=== PATIENT | male | born 1960 | race Caucasian/White ===

== ENCOUNTER 2017-02-20 09:04 | Inpatient (IN) | payer SELFPAY ==
[~2017-02-20] VITALS: Ht 175.3 cm; Wt 90.3 kg
[2017-02-20] MEDS ORDERED: PANTOPRAZOLE 80 MG in SODIUM CHLORIDE 0.9% 50 ML IV ONE (09:30)
[2017-02-20] MEDS ORDERED: PANTOPRAZOLE 80 MG in SODIUM CHLORIDE 0.9% 100 ML IV SCH (09:30)
[2017-02-20] MEDS ORDERED: SODIUM CHLORIDE FLUSH 10ML SYR IVF ONE (09:30)
[2017-02-20] MEDS ORDERED: ONDANSETRON 2MG/ML, 2ML IVPush ONE (09:30)
[2017-02-20] MEDS ORDERED: SODIUM CHLORIDE 0.9% 1,000ML IVBOLUS ONE (09:30)
[2017-02-20 10:31] LABS: ASPARTATE AMINO TRANSFERASE 16 U/L (15-37); BLOOD UREA NITROGEN 55 mg/dL (7-18)
[2017-02-20 10:34] LABS: DIFF TOTAL CELLS COUNTED 100 CELL DIFF
[2017-02-20 10:36] LABS: LARGE PLATELETS 1+; VERIFY COUNTS? YES
[2017-02-20] MEDS ORDERED: MORPHINE SULFATE 4 MG/ML, 1ML ONE ×2 (10:36→12:18)
[2017-02-20] MEDS ORDERED: ONDANSETRON 2MG/ML, 2ML ONE (10:36)
[2017-02-20] MEDS ORDERED: PROPOFOL 10 MG/ML, 20ML ONE (10:45)
[2017-02-20] MEDS ORDERED: SUCCINYLCHOLINE 20 MG/ML, 10ML ONE (10:45)
[2017-02-20] MEDS ORDERED: CALCIUM CHLORIDE 10%, 10ML SYR ONE (10:45)
[2017-02-20] MEDS ORDERED: DEXAMETHASONE 4 MG/ML, 1ML ONE (10:45)
[2017-02-20] MEDS ORDERED: ROCURONIUM 10 MG/ML ONE (10:45)
[2017-02-20] MEDS ORDERED: PHENYLEPHRINE 10 MG/ML ONE (10:45)
[2017-02-20] MEDS: MORPHINE SULFATE 4 MG/ML, 1ML IVPush PRN ×2 (11:02→12:20)
[2017-02-20] MEDS ORDERED: SODIUM CHLORIDE 0.9% 1,000 ML IV SCH (11:10)
[2017-02-20] MEDS ORDERED: SIMV5TAB5 PO (11:13)
[2017-02-20] MEDS ORDERED: LISI1TAB3 PO (11:13)
[2017-02-20] MEDS ORDERED: DILT360C22 PO (11:13)
[2017-02-20] MEDS ORDERED: ALLO300T PO (11:13)
[2017-02-20] MEDS ORDERED: CEFTRIAXONE PMX 1GM/50ML 50 ML IV ONE (11:30)
[2017-02-20] MEDS ORDERED: CEFTRIAXONE PMX 1GM/50ML 50 ML ONE (11:37)
[2017-02-20] MEDS ORDERED: NS + 20MEQ KCL 1,000 ML IV SCH ×2 (12:36→19:30)
[2017-02-20] MEDS ORDERED: ONDANSETRON 2MG/ML, 2ML IVP PRN (13:00)
[2017-02-20] MEDS ORDERED: ACETAMINOPHEN 325 MG TABLET PO PRN (13:00)
[2017-02-20] MEDS ORDERED: TEMAZEPAM 15 MG CAPSULE PO PRN (13:00)
[2017-02-20 13:17] LABS: BLOOD UREA NITROGEN 53 mg/dL (7-18)
[2017-02-20 13:24] LABS: IS PT STATUS REG ER OR PRE ER? YES
[2017-02-20 13:51] VITALS: BP 107/56
[2017-02-20 14:48] LABS: BLOOD UREA NITROGEN 53 mg/dL (7-18)
[2017-02-20] MEDS ORDERED: MIDAZOLAM 1 MG/ML, 2ML ONE (15:57)
[2017-02-20] MEDS ORDERED: FENTANYL PF 250 MCG/5ML ONE (15:57)
[2017-02-20] MEDS: PIPERACILLIN/TAZO/PMX 2.25GM 50 ML IV SCH ×2 (16:02→19:32)
[2017-02-20] MEDS ORDERED: ALBUMIN HUMAN 5% 500 ML ONE (17:45)
[2017-02-20 18:30] LABS: BLOOD UREA NITROGEN 53 mg/dL (7-18)
[2017-02-20 18:35] LABS: DIFF TOTAL CELLS COUNTED 100 CELL DIFF
[2017-02-20 18:36] LABS: IS PT STATUS REG ER OR PRE ER? NO
[2017-02-20 18:37] LABS: VERIFY COUNTS? YES
[2017-02-20 18:38] LABS: LARGE PLATELETS 1+; SMALL PLATELETS 1+
[2017-02-20] MEDS ORDERED: PROPOFOL 100 ML IV ONE (19:04)
[2017-02-20] MEDS ORDERED: NOREPINEPHRINE 1 MG/ML, 4ML ONE (19:08)
[2017-02-20 19:29] LABS: ABG COLLECTION SITE ARTERIAL LINE
[2017-02-20] MEDS ORDERED: VANCOMYCIN 1,900 MG in SODIUM CHLORIDE 0.9% 250 ML IV SCH (19:30)
[2017-02-20] MEDS ORDERED: VANCOMYCIN PER PHARMACY MC PRN (19:30)
[2017-02-20] MEDS ORDERED: PHARMACOKINETIC CONSULTATION MC ONE (19:30)
[2017-02-20] MEDS ORDERED: MORPHINE SULFATE 4 MG/ML, 1ML IV PRN (19:30)
[2017-02-20] MEDS ORDERED: PHARMACOKINETIC MONITORING MC PRN (19:30)
[2017-02-20] MEDS ORDERED: ONDANSETRON 2MG/ML, 2ML IVPush PRN (19:30)
[2017-02-20] MEDS: PROPOFOL 100 ML IV PRN ×2 (19:31→22:14)
[2017-02-20] MEDS: PANTOPRAZOLE 80 MG in SODIUM CHLORIDE 0.9% 100 ML IV SCH ×2 (20:00→23:48)
[2017-02-20] MEDS: HYDROmorphone 2 MG/ML, 1ML IV PRN ×2 (20:12→23:25)
[2017-02-20] MEDS: SODIUM CHLORIDE FLUSH 10ML SYR IVF SCH (21:21)
[2017-02-20 22:25] LABS: BLOOD UREA NITROGEN 50 mg/dL (7-18)
[2017-02-20] MEDS ORDERED: NOREPINEPHRINE 4 MG in SODIUM CHLORIDE 0.9% 246 ML IV PRN (23:00)
[2017-02-21] MEDS: PIPERACILLIN/TAZO/PMX 2.25GM 50 ML IV SCH ×4 (01:25→20:49)
[2017-02-21 01:50] LABS: BLOOD UREA NITROGEN 46 mg/dL (7-18)
[2017-02-21] MEDS: PROPOFOL 100 ML IV PRN (02:30)
[2017-02-21] MEDS: HYDROmorphone 2 MG/ML, 1ML IV PRN ×4 (02:31→20:50)
[2017-02-21] MEDS: NS + 20MEQ KCL 1,000 ML IV SCH ×2 (04:59→14:18)
[2017-02-21 06:02] LABS: ABG COLLECTION SITE ARTERIAL LINE
[2017-02-21 06:17] LABS: BLOOD UREA NITROGEN 43 mg/dL (7-18)
[2017-02-21 06:21] LABS: ASPARTATE AMINO TRANSFERASE 13 U/L (15-37)
[2017-02-21] MEDS: SODIUM CHLORIDE FLUSH 10ML SYR IVF SCH ×2 (09:29→21:38)
[2017-02-21 11:08] LABS: BLOOD UREA NITROGEN 37 mg/dL (7-18)
[2017-02-21 14:56] LABS: BLOOD UREA NITROGEN 33 mg/dL (7-18)
[2017-02-21] MEDS ORDERED: VANCOMYCIN 1,900 MG in SODIUM CHLORIDE 0.9% 250 ML IV SCH (21:00)
[2017-02-21] MEDS: FAMOTIDINE 20 MG/2 ML IVPush SCH (21:38)
[2017-02-22] MEDS: NS + 20MEQ KCL 1,000 ML IV SCH ×2 (00:08→08:30)
[2017-02-22] MEDS: HYDROmorphone 2 MG/ML, 1ML IV PRN ×8 (00:32→23:57)
[2017-02-22] MEDS: PIPERACILLIN/TAZO/PMX 2.25GM 50 ML IV SCH ×2 (02:44→08:29)
[2017-02-22 05:31] LABS: ABG COLLECTION SITE LEFT RADIAL
[2017-02-22 05:32] LABS: COLLATERAL CIRCULATION TESTING NORMAL
[2017-02-22 05:53] LABS: BLOOD UREA NITROGEN 26 mg/dL (7-18)
[2017-02-22] MEDS: FAMOTIDINE 20 MG/2 ML IVPush SCH ×2 (08:29→19:38)
[2017-02-22] MEDS: SODIUM CHLORIDE FLUSH 10ML SYR IVF SCH ×2 (08:37→21:00)
[2017-02-22] MEDS: HEPARIN 5,000 UNITS/ML, 1ML SQ SCH ×2 (11:30→17:24)
[2017-02-22 13:35] VITALS: BP 129/85
[2017-02-22] MEDS: PIPERACILLIN/TAZO/PMX 3.375GM 50 ML IV SCH ×2 (14:54→19:38)
[2017-02-22 19:45] VITALS: BP 120/89
[2017-02-23] MEDS: NS + 20MEQ KCL 1,000 ML IV SCH ×2 (00:07→22:08)
[2017-02-23] MEDS: PIPERACILLIN/TAZO/PMX 3.375GM 50 ML IV SCH ×4 (01:49→20:28)
[2017-02-23] MEDS: HEPARIN 5,000 UNITS/ML, 1ML SQ SCH ×3 (01:49→17:50)
[2017-02-23 02:30] VITALS: BP 148/87
[2017-02-23] MEDS: HYDROmorphone 2 MG/ML, 1ML IV PRN ×3 (04:08→10:27)
[2017-02-23 06:42] LABS: BLOOD UREA NITROGEN 15 mg/dL (7-18)
[2017-02-23 07:26] VITALS: BP 152/88
[2017-02-23] MEDS: FAMOTIDINE 20 MG/2 ML IVPush SCH ×2 (09:19→20:27)
[2017-02-23] MEDS: SODIUM CHLORIDE FLUSH 10ML SYR IVF SCH ×2 (09:19→20:28)
[2017-02-23] MEDS: OXYcodone IR 5MG TABLET PO PRN ×3 (11:42→20:28)
[2017-02-23 13:26] VITALS: BP 134/93
[2017-02-23 19:58] VITALS: BP 129/88
[2017-02-24] MEDS: PIPERACILLIN/TAZO/PMX 3.375GM 50 ML IV SCH ×4 (01:56→19:51)
[2017-02-24] MEDS: HEPARIN 5,000 UNITS/ML, 1ML SQ SCH ×3 (01:56→18:04)
[2017-02-24 02:28] LABS: BLOOD UREA NITROGEN 12 mg/dL (7-18)
[2017-02-24] MEDS: OXYcodone IR 5MG TABLET PO PRN ×4 (03:00→19:51)
[2017-02-24 04:07] VITALS: BP 150/96
[2017-02-24] MEDS: FAMOTIDINE 20 MG/2 ML IVPush SCH ×2 (08:03→19:51)
[2017-02-24] MEDS: SODIUM CHLORIDE FLUSH 10ML SYR IVF SCH ×2 (08:04→19:50)
[2017-02-24 08:08] VITALS: BP 144/97
[2017-02-24 14:15] VITALS: BP 152/105
[2017-02-24] MEDS: NS + 20MEQ KCL 1,000 ML IV SCH (16:09)
[2017-02-24 19:11] VITALS: BP 151/105
[2017-02-25] VITALS (14 sets, daily range): BP systolic 154–197; BP diastolic 97–122
[2017-02-25] MEDS: HEPARIN 5,000 UNITS/ML, 1ML SQ SCH ×3 (02:01→17:22)
[2017-02-25] MEDS: PIPERACILLIN/TAZO/PMX 3.375GM 50 ML IV SCH ×4 (02:01→19:37)
[2017-02-25] MEDS: NS + 20MEQ KCL 1,000 ML IV SCH (05:21)
[2017-02-25 06:00] LABS: BLOOD UREA NITROGEN 9 mg/dL (7-18)
[2017-02-25 07:25] LABS: DIFF TOTAL CELLS COUNTED 100 CELL DIFF
[2017-02-25 07:26] LABS: VERIFY COUNTS? YES
[2017-02-25] MEDS: HYDROmorphone 2 MG/ML, 1ML IV PRN (08:06)
[2017-02-25] MEDS: ENALAPRILAT 1.25 MG/ML, 2ML IV PRN ×4 (08:06→23:56)
[2017-02-25] MEDS: SODIUM CHLORIDE FLUSH 10ML SYR IVF SCH ×2 (08:07→19:37)
[2017-02-25] MEDS: FAMOTIDINE 20 MG/2 ML IVPush SCH ×2 (08:07→19:37)
[2017-02-25] MEDS: OXYcodone IR 5MG TABLET PO PRN ×4 (09:47→21:58)
[2017-02-25] MEDS ORDERED: hydrALAzine 20 MG/ML, 1ML IV PRN (14:30)
[2017-02-25] MEDS: LABETALOL 5MG/ML, 20ML IVPush PRN ×2 (17:16→19:51)
[2017-02-25] MEDS: METOPROLOL TARTRATE 25 MG TABLET PO SCH (18:11)
[2017-02-26] VITALS (9 sets, daily range): BP systolic 143–183; BP diastolic 91–116
[2017-02-26] MEDS: LABETALOL 5MG/ML, 20ML IVPush PRN (02:02)
[2017-02-26] MEDS: HEPARIN 5,000 UNITS/ML, 1ML SQ SCH ×3 (02:03→18:23)
[2017-02-26] MEDS: PIPERACILLIN/TAZO/PMX 3.375GM 50 ML IV SCH ×4 (02:03→20:24)
[2017-02-26] MEDS: OXYcodone IR 5MG TABLET PO PRN ×6 (02:03→22:43)
[2017-02-26] MEDS: NS + 20MEQ KCL 1,000 ML IV SCH ×2 (02:23→18:23)
[2017-02-26] MEDS: METOPROLOL TARTRATE 25 MG TABLET PO SCH ×2 (05:17→18:23)
[2017-02-26] MEDS: SODIUM CHLORIDE FLUSH 10ML SYR IVF SCH ×2 (08:29→20:24)
[2017-02-26] MEDS: LISINOPRIL 10 MG TABLET PO SCH (08:29)
[2017-02-26] MEDS: FAMOTIDINE 20 MG/2 ML IVPush SCH ×2 (08:30→20:24)
[2017-02-27] MEDS: OXYcodone IR 5MG TABLET PO PRN ×6 (02:32→22:31)
[2017-02-27] MEDS: PIPERACILLIN/TAZO/PMX 3.375GM 50 ML IV SCH ×4 (02:32→20:23)
[2017-02-27] MEDS: HEPARIN 5,000 UNITS/ML, 1ML SQ SCH ×3 (02:32→18:41)
[2017-02-27 02:35] VITALS: BP 161/99
[2017-02-27] MEDS: METOPROLOL TARTRATE 25 MG TABLET PO SCH ×2 (06:15→18:40)
[2017-02-27 07:08] VITALS: BP 161/103
[2017-02-27] MEDS: NS + 20MEQ KCL 1,000 ML IV SCH ×2 (07:56→22:41)
[2017-02-27] MEDS: ENALAPRILAT 1.25 MG/ML, 2ML IV PRN (07:57)
[2017-02-27] MEDS: SODIUM CHLORIDE FLUSH 10ML SYR IVF SCH ×2 (07:57→20:23)
[2017-02-27] MEDS: FAMOTIDINE 20 MG/2 ML IVPush SCH ×2 (10:35→20:23)
[2017-02-27] MEDS: LISINOPRIL 10 MG TABLET PO SCH (10:35)
[2017-02-27] MEDS: HYDROmorphone 2 MG/ML, 1ML IV PRN (11:08)
[2017-02-27 14:01] VITALS: BP 163/99
[2017-02-27 20:09] VITALS: BP 142/96
[2017-02-28] MEDS: HEPARIN 5,000 UNITS/ML, 1ML SQ SCH ×3 (02:11→18:00)
[2017-02-28] MEDS: PIPERACILLIN/TAZO/PMX 3.375GM 50 ML IV SCH ×4 (02:11→19:53)
[2017-02-28] MEDS: OXYcodone IR 5MG TABLET PO PRN ×5 (02:18→23:24)
[2017-02-28 02:36] VITALS: BP 159/93
[2017-02-28] MEDS: METOPROLOL TARTRATE 25 MG TABLET PO SCH ×2 (05:23→18:00)
[2017-02-28 06:15] LABS: BLOOD UREA NITROGEN 7 mg/dL (7-18)
[2017-02-28 07:19] VITALS: BP 177/113
[2017-02-28 08:41] VITALS: BP 146/94
[2017-02-28] MEDS: FAMOTIDINE 20 MG/2 ML IVPush SCH ×2 (08:42→19:52)
[2017-02-28] MEDS: LISINOPRIL 10 MG TABLET PO SCH (08:42)
[2017-02-28] MEDS: SODIUM CHLORIDE FLUSH 10ML SYR IVF SCH ×2 (08:42→19:53)
[2017-02-28] MEDS ORDERED: SUCCINYLCHOLINE 20 MG/ML, 10ML ONE (10:10)
[2017-02-28] MEDS ORDERED: DEXAMETHASONE 4 MG/ML, 1ML ONE (10:10)
[2017-02-28] MEDS ORDERED: ONDANSETRON 2MG/ML, 2ML ONE (10:10)
[2017-02-28] MEDS ORDERED: PROPOFOL 10 MG/ML, 20ML ONE (10:10)
[2017-02-28] MEDS: NS + 20MEQ KCL 1,000 ML IV SCH (11:52)
[2017-02-28 14:03] VITALS: BP 136/99
[2017-02-28] MEDS ORDERED: BACITRACIN OINT 500U/GM, 15 GM ONE (14:59)
[2017-02-28] MEDS ORDERED: BACITRACIN 50,000 UNIT ONE (14:59)
[2017-02-28] MEDS ORDERED: NEOMY/POLYMYXIN B GU IRR. 1 ML IRRIG ONE (14:59)
[2017-02-28] MEDS ORDERED: MIDAZOLAM 1 MG/ML, 2ML ONE (18:00)
[2017-02-28] MEDS ORDERED: FENTANYL PF 250 MCG/5ML ONE (18:00)
[2017-02-28] MEDS ORDERED: ALBUTEROL/IPRATROPIUM 2.5MG/0.5MG, 3 ML NPPB PRN (18:30)
[2017-02-28] MEDS ORDERED: OXYcodone 5 MG/5 ML ORAL.SOL UDC PO PRN (18:30)
[2017-02-28] MEDS ORDERED: LABETALOL 5MG/ML, 20ML IV PRN (18:30)
[2017-02-28] MEDS ORDERED: hydrALAzine 20 MG/ML, 1ML IV PRN (18:30)
[2017-02-28] MEDS ORDERED: FENTANYL PF 100 MCG/2ML IV PRN (18:30)
[2017-02-28] MEDS ORDERED: HYDROmorphone 1 MG/ML, 1ML IV PRN (18:30)
[2017-02-28] MEDS ORDERED: MEPERIDINE/PF 25MG/0.5ML IVPush PRN (18:30)
[2017-02-28] MEDS ORDERED: MIDAZOLAM 1 MG/ML, 2ML IV PRN (18:30)
[2017-02-28] MEDS ORDERED: PROMETHAZINE 25 MG/ML, 1ML IV PRN (18:30)
[2017-02-28] MEDS ORDERED: ONDANSETRON 2MG/ML, 2ML IVPush PRN (18:30)
[2017-02-28] MEDS ORDERED: OXYcodone 5 MG/5 ML ORAL.SOL UDC ONE (18:38)
[2017-02-28] MEDS ORDERED: FENTANYL PF 100 MCG/2ML ONE (18:38)
[2017-02-28] MEDS ORDERED: LABETALOL 5MG/ML, 20ML ONE (18:54)
[2017-02-28] MEDS: ALLOPURINOL MC SCH (20:30)
[2017-02-28] MEDS: HCTZ MC SCH (20:30)
[2017-02-28] MEDS: SIMVASTATIN MC SCH (20:30)
[2017-02-28] MEDS: LIS MC SCH (20:30)
[2017-03-01 00:07] VITALS: BP 156/98
[2017-03-01] MEDS: HEPARIN 5,000 UNITS/ML, 1ML SQ SCH ×2 (02:02→10:12)
[2017-03-01] MEDS: NS + 20MEQ KCL 1,000 ML IV SCH ×2 (02:02→13:20)
[2017-03-01] MEDS: PIPERACILLIN/TAZO/PMX 3.375GM 50 ML IV SCH ×3 (02:02→15:07)
[2017-03-01 03:22] VITALS: BP 161/99
[2017-03-01] MEDS: ALLOPURINOL MC SCH ×2 (04:27→12:30)
[2017-03-01] MEDS: SIMVASTATIN MC SCH ×2 (04:27→12:30)
[2017-03-01] MEDS: LIS MC SCH ×2 (04:27→12:30)
[2017-03-01] MEDS: HCTZ MC SCH ×2 (04:27→12:30)
[2017-03-01] MEDS: OXYcodone IR 5MG TABLET PO PRN ×4 (04:33→16:29)
[2017-03-01] MEDS: METOPROLOL TARTRATE 25 MG TABLET PO SCH (04:33)
[2017-03-01 07:30] VITALS: BP 176/111
[2017-03-01] MEDS: SODIUM CHLORIDE FLUSH 10ML SYR IVF SCH (08:29)
[2017-03-01] MEDS: FAMOTIDINE 20 MG/2 ML IVPush SCH (08:29)
[2017-03-01] MEDS: LISINOPRIL 10 MG TABLET PO SCH (08:30)
[2017-03-01] MEDS ORDERED: DILTIAZEM CD 180 MG CAP.ER.24H PO SCH (09:00)
[2017-03-01] MEDS ORDERED: OXYC5TAB3 PO (11:53)
[2017-03-01] MEDS ORDERED: METO25TA35 PO (11:53)
[2017-03-01] MEDS ORDERED: AMOX1TAB64 PO (11:54)
[2017-03-01] MEDS ORDERED: METR500T PO (11:54)
== END 2017-03-01 17:00 | disposition home or self-care (01) | DRG 329 ==
LOC: ED 11:19 → EDIP 11:20 → ED 11:43 → CCU 13:40 → 4NOR 02-22 13:42 → DCLOUNGE 03-01 16:50
PROVIDERS: ADMIT Internal Medicine; ATTEND Family Medicine
PROC: 0D1B0Z4 Bypass Ileum to Cutaneous, Open Approach (ICD-10-PCS; 2017-02-20)
PROC: 5A1935Z Respiratory Ventilation, Less than 24 Consecutive Hours (ICD-10-PCS; 2017-02-20)
PROC: 0BH17EZ Insertion of Endotracheal Airway into Trachea, Via Natural or Artificial Opening (ICD-10-PCS; 2017-02-20)
PROC: 0DTE0ZZ Resection of Large Intestine, Open Approach (ICD-10-PCS; principal; 2017-02-20 16:00)
PROC: 02HV33Z Insertion of Infusion Device into Superior Vena Cava, Percutaneous Approach (ICD-10-PCS; 2017-02-23)
PROC: B5181ZA Fluoroscopy of Superior Vena Cava using Low Osmolar Contrast, Guidance (ICD-10-PCS; 2017-02-23)
PROC: B548ZZA Ultrasonography of Superior Vena Cava, Guidance (ICD-10-PCS; 2017-02-23)
PROC: 30233N1 Transfusion of Nonautologous Red Blood Cells into Peripheral Vein, Percutaneous Approach (ICD-10-PCS; 2017-02-25)
PROC: 0WQFXZZ Repair Abdominal Wall, External Approach (ICD-10-PCS; 2017-02-28)
DX: K65.0 Generalized (acute) peritonitis (principal); E43 Unspecified severe protein-calorie malnutrition; N17.0 Acute kidney failure with tubular necrosis; K63.1 Perforation of intestine (nontraumatic); E87.1 Hypo-osmolality and hyponatremia; D62 Acute posthemorrhagic anemia; I10 Essential (primary) hypertension; K21.9 Gastro-esophageal reflux disease without esophagitis; M54.30 Sciatica, unspecified side; M10.9 Gout, unspecified; D53.9 Nutritional anemia, unspecified; E87.6 Hypokalemia; E87.8 Other disorders of electrolyte and fluid balance, not elsewhere classified; K52.9 Noninfective gastroenteritis and colitis, unspecified; K66.8 Other specified disorders of peritoneum; Z68.31 Body mass index [BMI] 31.0-31.9, adult; Z87.11 Personal history of peptic ulcer disease
CPT/HCPCS: 36415; 36569; 36600; 71010; 74176; 76937; 77001; 80048; 80053; 81003; 82607; 82728; 82746; 82803; 83540; 83550; 83605; 83690; 83735; 84100; 84145; 84443; 84466; 84484; 85018; 85025; 85610; 85730; 86850; 86900; 86923; 87040; 87081; 87324; 88309; 93005; 94002; 94003; 94150; 96365; 96366; 96368; 96375; 96376; J0696; J1100; J1170; J1644; J2250; J2405; J2543; J2704; J3010; J3370; J3480; P9045; C1751; C9113; J0330; J0360; J2370; J7030; J7050; P9016; S0028